=== PATIENT | female | born 1990 | race Asian ===

== ENCOUNTER 2020-07-22 21:34 | Emergency (ER) | payer MEDICAID, OTHER ==
[~2020-07-22] VITALS: Ht 152.4 cm; Wt 47.3 kg
[2020-07-22] MEDS ORDERED: KETOROLAC TROMETHAMINE 30 MG/ML VIAL IVP ONE (22:45)
[2020-07-22] MEDS ORDERED: KETAMINE HCL 50 MG/ML 10 ML VIAL IVP ONE (22:45)
[2020-07-22] MEDS ORDERED: SODIUM CHLORIDE 0.9% 1,000 ML IV ONE (22:45)
[2020-07-22] MEDS ORDERED: MORPHINE SULFATE 4 MG/ML SYRINGE IVP ONE (22:45)
[2020-07-23 03:58] VITALS: BP 127/77
[2020-07-24] MEDS ORDERED: IBUP-2070 PO (08:32)
[2020-07-24] MEDS ORDERED: BUPIVACAINE LIPOSOME/PF 1.3%-13.3MG/ML SUSPENSION 20 ML VIAL INJ ONE (09:15)
== END 2020-07-23 04:20 | disposition home or self-care (01) ==
LOC: EMS 21:34
DX: S52.102A Unspecified fracture of upper end of left radius, initial encounter for closed fracture (principal); S52.002A Unspecified fracture of upper end of left ulna, initial encounter for closed fracture; V00.131A Fall from skateboard, initial encounter; Y93.51 Activity, roller skating (inline) and skateboarding; Y92.89 Other specified places as the place of occurrence of the external cause; Y99.8 Other external cause status
CPT/HCPCS: 25565; 73070; 73090 ×2; 73110; 96360; 99285; J1885; J2270; J3490; J7030; 25560; C9290

== ENCOUNTER 2020-07-24 20:27 | Emergency (ER) | payer OTHER ==
[~2020-07-24] VITALS: Ht 152.4 cm; Wt 47.3 kg
[~2020-07-24 20:27] MED LIST: IBUP-2070 PO
[2020-07-24 22:34] LABS: BASOPHILS % (AUTO) 0.1 % (0.0-2.0); EOSINOPHILS % (AUTO) 0 % (1.0-6.0); HEMATOCRIT 35.3 % (36-46); HEMOGLOBIN 11.6 g/dL (12.0-16.0); LYMPHOCYTES % (AUTO) 10.5 % (22.0-44.0); MEAN CORPUSCULAR HEMOGLOBIN 27.5 pg (26.0-34.0); MEAN CORPUSCULAR VOLUME 83 fL (80-100); MONOCYTES # (AUTO) 0.6 K/uL (0.1-1.0); MONOCYTES % (AUTO) 6.6 % (2.0-9.0); NEUTROPHILS # (AUTO) 7.5 K/uL (1.8-7.7); NEUTROPHILS % (AUTO) 82.8 % (40.0-70.0); PLATELET COUNT (AUTO) 308 K/uL (150-450); RED BLOOD CELL COUNT(AUTO) 4.23 MIL/uL (4.00-5.20); RED CELL DISTRIBUTION WIDTH 15.8 % (11.5-14.5)
[2020-07-24 22:42] LABS: ANION GAP 8 mmol/L (8-16); CALCIUM, TOTAL 8.8 mg/dL (8.8-10.5); CARBON DIOXIDE 27 mmol/L (22-29); CHLORIDE 105 mmol/L (98-107); CREATININE 0.82 mg/dL (0.60-1.30); GLOMERULAR FILTR. RATE CALC > 60 mL/min (>60); GLUCOSE,RANDOM 114 mg/dL (70-110); POTASSIUM 3.9 mmol/L (3.5-5.1); SODIUM SERUM 140 mmol/L (136-145); UREA NITROGEN, BLOOD 8 mg/dL (7-18)
[2020-07-24 22:53] LABS: HCG,QUANTITATIVE < 1 mIU/mL (0-6)
[2020-07-25 03:22] VITALS: BP 112/62
== END 2020-07-25 03:36 | disposition home or self-care (01) ==
LOC: EMS 20:33
DX: R20.2 Paresthesia of skin (principal); R20.0 Anesthesia of skin; F12.90 Cannabis use, unspecified, uncomplicated
CPT/HCPCS: 29105